=== PATIENT | female | born 1975 | race African-American/Black ===

== ENCOUNTER 2016-07-28 10:47 | Emergency (ER) | payer MEDICAID ==
[~2016-07-28] VITALS: Ht 157.5 cm; Wt 108.9 kg
[~2016-07-28 10:47] MED LIST: ALBUTEROL SULF8.5 GM INH; ALBUTEROL2.5 MG/3 M HHN; ALBUTEROL2.5 MG/3 M INH; LEVAQUIN500 MG ORAL; MEDROL4 MG ORAL; PREDNISONE20 MG ORAL; PROMETHAZINE-C118 M1 ORAL; SINGULAIR10 MG ORAL; SYMBICORT 16010.2 G1 IH; XOPENEX HFA15 GM IH
[2016-07-28] MEDS ORDERED: Albuterol ud Inhalation HHN ONE (11:15)
[2016-07-28] MEDS ORDERED: Ipratropium 0.02% Inh Soln 2.5ml UD HHN ONE (11:15)
[2016-07-28] MEDS ORDERED: Solu-MEDROL 125mg Inj IVP ONE (11:15)
[2016-07-28] MEDS ORDERED: Ketorolac 30mg Inj IV ONE (11:15)
--- NOTE | 2016-07-28 11:16 | Emergency Room Report ---
History of Present Illness General Chief Complaint: Dyspnea/Respdistress Source: Patient Present Illness HPI Patient present with complaints of asthma exacerbation Complains of shortness of breath reports that her medication at home has not been helping patient recently [place] Reports that she had high fever over there Symptoms had already started there as well denies any chest pain however she does have some increased tightness with her breathing Denies any vomiting or diarrhea Patient complains of myalgia and bodies as well Allergies: Coded Allergies: No Known Allergies (Verified , 07/21/14) Patient History Past Medical History: see triage record Pertinent Family History: none Last Menstrual Period: Current Now: No Reviewed Nursing Documentation: PMH: Agreed, PSxH: Agreed Nursing Documentation-PMH Hx Cardiac Problems: No Hx Hypertension: No Hx Pacemaker: No Hx Asthma: Yes Hx COPD: No Hx Diabetes: No Hx Cancer: No Hx Gastrointestinal Problems: No Hx Dialysis: No Hx Neurological Problems: No Hx Cerebrovascular Accident: No Hx Seizures: No Review of Systems All Other Systems: negative except mentioned in HPI Physical Exam Vital Signs Date Time Temp Pulse Resp B/P Pulse Ox O2 Delivery O2 Flow Rate FiO2 07/28/16 10:52 98.8 112 24 123/88 94 Room Air Sp02 EP Interpretation: reviewed, normal General Appearance: mild distress - Appear short of breath Head: normocephalic, atraumatic Eyes: bilateral eye EOMI, bilateral eye PERRL ENT: hearing grossly normal, normal pharynx, TMs + canals normal, uvula midline Neck: full range of motion, supple, no meningismus, no bony tend Respiratory: no accessory muscle use, wheezing - Bilaterally with tachypnea and mild retractions Cardiovascular #1: normal peripheral pulses, regular rate, rhythm, no edema, no gallop, no JVD, no murmur Gastrointestinal: normal bowel sounds, non tender, soft, no mass, no organomegaly, non-distended, no guarding, no hernia, no pulsatile mass, no rebound Genitourinary: no CVA tenderness Musculoskeletal: normal inspection Neurologic: oriented x3, responsive, deportation officer III-XII nml as tested, motor strength/ tone normal, sensory intact Psychiatric: mood/affect normal Skin: normal color, no rash, warm/dry, palpation normal Lymphatic: normal inspection, no adenopathy Procedures Critical Care Time Critical Care Time 40 minutes for initial critical presentation respiratory distress concerning for respiratory failure not including any procedural time Medical Decision Making Diagnostic Impression: Primary Impression: Asthma with acute exacerbation ER Course Patient is a fairly complex patient with multiple differential to consideration including but not limited to cardiac cardiopulmonary and vascular emergencies Consideration for PE is also made however patient's symptoms started prior to her flight She is also having fevers and feels that her asthma exacerbated, Patient provided multiple input here in the emergency room has done significantly better however the son requires continued breathing treatments Secondary to patient's insurance she was requested for transfer Labs Test 07/28/16 11:20 White Blood Count 10.5 K/UL (4.8-10.8) Red Blood Count 5.20 M/UL (4.20-5.40) Hemoglobin 11.8 G/DL (12.0-16.0) Hematocrit 37.7 % (37.0-47.0) Mean Corpuscular Volume 73 FL (80-99) Mean Corpuscular Hemoglobin 22.7 PG (27.0-31.0) Mean Corpuscular Hemoglobin Concent 31.2 G/DL (32.0-36.0) Red Cell Distribution Width 14.7 % (11.6-14.8) Platelet Count 394 K/UL (150-450) Mean Platelet Volume 5.5 FL (6.5-10.1) Neutrophils (%) (Auto) 59.4 % (45.0-75.0) Lymphocytes (%) (Auto) 23.5 % (20.0-45.0) Monocytes (%) (Auto) 11.2 % (1.0-10.0) Eosinophils (%) (Auto) 5.0 % (0.0-3.0) Basophils (%) (Auto) 1.0 % (0.0-2.0) Sodium Level 136 mEQ/L (135-145) Potassium Level 3.3 mEQ/L (3.4-4.9) Chloride Level 96 mEQ/L (98-107) Carbon Dioxide Level 27 mEQ/L (20-30) Anion Gap 13 (5-15) Blood Urea Nitrogen 4 mg/dL (7-23) Creatinine 0.9 mg/dL (0.5-0.9) Estimat Glomerular Filtration Rate > 60 mL/min (>60) Glucose Level 94 mg/dL (74-106) Calcium Level 9.0 mg/dL (8.6-10.2) Total Bilirubin 0.7 mg/dL (0.0-1.2) Aspartate Amino Transf (AST/SGOT) 15 U/L (5-40) Alanine Aminotransferase (ALT/SGPT) 14 U/L (3-33) Alkaline Phosphatase 74 U/L (35-104) Total Creatine Kinase 175 U/L (26-140) Creatine Kinase MB < 1.5 ng/mL (< 3.8) Creatine Kinase MB Relative Index 0.8 Troponin I < 0.30 ng/mL (<=0.30) Total Protein 7.2 g/dL (6.6-8.7) Albumin 3.5 g/dL (3.5-5.2) Globulin 3.7 g/dL Albumin/Globulin Ratio 0.9 (1.0-2.7) Lipase 16 U/L (< 60) Rhythm Strip Diag. Results EP Interpretation: yes Rate: 110 Rhythm: no PVC's, no ectopy, other - sinus tach Chest X-Ray Diagnostic Results EP Interpretation: Yes Findings: no consolidation, no effusion, no pneumothorax Number of Views: 1 Last Vital Signs Date Time Temp Pulse Resp B/P Pulse Ox O2 Delivery O2 Flow Rate FiO2 07/28/16 10:52 98.8 112 24 123/88 94 Room Air Status: improved Disposition: [facility] Condition: Improved NYA GONZALEZ D.O. Jul 28, 2016 11:16
[2016-07-28 11:34] VITALS: BP 123/88
[2016-07-28 11:48] LABS: LYMPHOCYTES % (AUTO) 23.5 % (20.0-45.0); MEAN CORPUSCULAR HEMOGLOBIN 22.7 PG (27.0-31.0); MEAN CORPUSCULAR HGB CONC 31.2 G/DL (32.0-36.0); MEAN CORPUSCULAR VOLUME 73 FL (80-99); MEAN PLATELET VOLUME 5.5 FL (6.5-10.1); MONOCYTES % (AUTO) 11.2 % (1.0-10.0); NEUTROPHILS % (AUTO) 59.4 % (45.0-75.0); PLATELET COUNT 394 K/UL (150-450); RED CELL DISTRIBUTION WIDTH 14.7 % (11.6-14.8); WHITE BLOOD COUNT 10.5 K/UL (4.8-10.8)
[2016-07-28 11:58] LABS: TROPONIN I < 0.30 ng/mL (<=0.30)
[2016-07-28 11:59] LABS: ALANINE AMINOTRANSFERASE 14 U/L (3-33); ALBUMIN/GLOBULIN RATIO 0.9 (1.0-2.7); ANION GAP 13 (5-15); ASPARTATE AMINO TRANSFERASE 15 U/L (5-40); CARBON DIOXIDE 27 mEQ/L (20-30); CHLORIDE 96 mEQ/L (98-107); CREATININE 0.9 mg/dL (0.5-0.9); GLOMERULAR FILTRATION RATE > 60 mL/min (>60); HEMOLYSIS 1; LIPASE 16 U/L (< 60); POTASSIUM 3.3 mEQ/L (3.4-4.9); SODIUM 136 mEQ/L (135-145); TOTAL PROTEIN 7.2 g/dL (6.6-8.7)
[2016-07-28 12:09] LABS: CKMB < 1.5 ng/mL (< 3.8)
[2016-07-28 12:38] VITALS: BP 117/81
[2016-07-28 14:28] VITALS: BP 115/59
[2016-07-28 15:16] VITALS: BP 111/69
--- NOTE | 2016-07-29 11:28 | Diagnostic Imaging Report ---
Indication: CP Technique: One view of the chest Comparison: 07/22/2014 Findings: Lungs and pleural spaces are clear. Heart size is normal. No significant change Impression: No acute process
== END 2016-07-28 15:23 | disposition short-term general hospital (02) ==
LOC: EMR 11:27
DX: J45.901 Unspecified asthma with (acute) exacerbation (principal)
CPT/HCPCS: 36415; 71010; 80053; 82550; 82553; 83690; 84484; 85025; 93005; 94640; 94664; 96360; 96361; 96374; 96375; 99285; J1885; J2930; J7040